=== PATIENT | female | born 1990 | race African-American/Black ===

== ENCOUNTER 2017-03-08 11:43 | Inpatient (IN) ==
--- NOTE | 2017-03-08 10:42 | OB/GYN History & Physical ---
Date of Encounter: 03/08/17 Time of Encounter: 10:35 Assessment and Plan (1) 36 weeks gestation of Current visit: Yes Status: Acute (2) History of cervical cerclage, currently in third trimester Current visit: Yes Status: Acute (3) Uterine contractions during Current visit: Yes Status: Acute Monitor patient for next 4 hours for cervical change due to current contraction pattern Admit to labor and delivery if in labor History of Present Illness Chief complaint: post cerclage removal. Here for labor evaluation and obs. HPI: Ms. Peoples is a 26 year old female 36+6 weeks gestation sent over to triage from the office today after cerclage removal for evaluation of labor. Patient reports has been feeling slight contractions since earlier this morning patient states contractions 4 out of 10. Patient did have complications of placental lakes and ovarian cysts noted on ultrasound, no further complications of this . Patient reports good movement denies leaking of fluid or vaginal bleeding prior to cerclage removal Labs: O-, GBS negative, rubella immune and other serologies negative Past Med Surg Social Fam HX - Social History Smoking Status: Unknown if ever smoked - Family History Mother History Unknown: Yes Living Status: Still Living Obstetrical History - Pregnancies : 3 Para: 1 Term: 1 Livin Medications and Allergies Ferrous Sulfate 325 mg PO DAILY 03/08/17 [History] Complete Caplet 1 tab PO DAILY 03/08/17 [History] Progesterone 200 mg VG DAILY 03/08/17 [History] Allergies No Known Allergies Allergy (Verified 03/08/17 10:04) Review of System OB All systems PM: reviewed and no additional remarkable complaints except as stated Exam - Constitutional Constitutional: well developed, well nourished, no acute distress - Neck Neck exam: full ROM - Lungs Respiratory exam: CTAB - Cardiovascular Cardiovascular exam: RRR, +S1, +S2 - Abdomen Abdomen: Present: bowel sounds normal, gravid, non tender - Uterus Uterus exam: Present: normal size, normal contour Results All other labs normal.
--- NOTE | 2017-03-08 11:22 | OB Labor Progress Note ---
Date of Encounter: 03/08/17 Time of Encounter: 11:20 Labor Progress Note - Subjective Subjective: Pt states contractions are stronger and closer than when she was admitted. Still coping well. - Cervix Cervix: 4/80/-1 - Heart Tones Heart Tones: 135/moderate/+accels/-decels Cat I - Ernest Ernest: q2-4 minutes - Interventions Interventions: Vaginal exam - Plan Plan: Continue current observation Will recheck in [address] Burgos updated.
[~2017-03-08 11:43] MED LIST: *HR* Nalbuphine 20 MG/ML AMPUL IVP PRN; Famotidine 20 MG/2 ML VIAL IVP PRN; Naloxone 0.4 MG/ML INJ IVP PRN
[2017-03-08] MEDS ORDERED: Ringers Solution, Lactated 1,000 ML IVC SCH (11:45)
[2017-03-08 14:35] LABS: Basophils % 0.4 %; Eosinophils # 0.2 K/mcL (0.0-0.6); Eosinophils % 1.7 %; Hematocrit 34.1 % (35.3-44.9); Hemoglobin 10.4 g/dL (11.5-15.4); Immature Granulocytes % 1.8 % (0-4); Lymphocytes # 2.2 K/mcL (0.6-4.6); Mean Corpuscular HGB Conc 30.5 g/dL (31.6-35.5); Mean Corpuscular Hemoglobin 27.8 pg (28.0-33.3); Mean Corpuscular Volume 91.2 fL (83.0-100.0); Mean Platelet Volume 10.9 fL (9.4-12.4); Monocytes # 0.8 K/mcL (0.0-1.3); Monocytes % 7.2 %; Neutrophils # 7.7 K/mcL (1.6-8.9); Platelet Count 213 K/mcL (140-400); Red Blood Count 3.74 M/mcL (3.82-4.97); Red Cell Distribution Width 17.2 % (11.5-14.5); Segmented Neutrophils % 68.9 %
--- NOTE | 2017-03-08 19:51 | OB Labor Progress Note ---
Date of Encounter: 03/08/17 Time of Encounter: 19:49 Labor Progress Note - Subjective Subjective: Pt states she feels contractions have decreased and feels them about every 8 minutes and are less intense. - Cervix Cervix: 5/80/-2 - Heart Tones Heart Tones: 135/moderate/+accels/-decels - [place]: 6-8 minutes/mild palpation - Plan Plan: Due to cervical change and distance from hospital will keep overnight and recheck cervix in AM. Ambien for sleep no monitoring unless patient feels contractions intensify. Regular diet May shower
--- NOTE | 2017-03-09 07:16 | Discharge Summary ---
Date of Encounter: 03/09/17 Time of Encounter: 07:15 - Discharge Diagnosis (1) 36 weeks gestation of Priority: Primary Status: Acute (2) History of cervical cerclage, currently in third trimester Priority: Primary Status: Acute (3) Uterine contractions during Priority: Primary Status: Acute Comments: Pt slept during night. Pt states occasional contractions, but not painful or feeling like labor. VE 5/80/-2. Will discharge home, Discussed with patient about when to return to triage for evaluation. Dr Baca updated. Dr. Burgos updated by Dr. Baca - Discharge Medications Home Medications: Ferrous Sulfate 325 mg PO DAILY 03/08/17 [History] Complete Caplet 1 tab PO DAILY 03/08/17 [History] Progesterone 200 mg VG DAILY 03/08/17 [History] Allergies/Adverse Reactions: Allergies No Known Allergies Allergy (Verified 03/08/17 10:04) Data Procedures and tests throughout hospitalization: Laboratory Tests 03/08/17 14:00 WBC 11.2 H RBC 3.74 L Hgb 10.4 L Hct 34.1 L MCV 91.2 MCH 27.8 L MCHC 30.5 L RDW 17.2 H Plt Count 213 MPV 10.9 Immature Gran % 1.8 Seg Neutrophils % 68.9 Lymphocytes % 20.0 Monocytes % 7.2 Eosinophils % 1.7 Basophils % 0.4 Neutrophils # 7.7 Lymphocytes # 2.2 Monocytes # 0.8 Eosinophils # 0.2 Basophils # 0.0 Labs on day of discharge: Labs from last 24 hours 03/08/17 14:00 WBC 11.2 H RBC 3.74 L Hgb 10.4 L Hct 34.1 L MCV 91.2 MCH 27.8 L MCHC 30.5 L RDW 17.2 H Plt Count 213 MPV 10.9 Immature Gran % 1.8 Seg Neutrophils % 68.9 Lymphocytes % 20.0 Monocytes % 7.2 Eosinophils % 1.7 Basophils % 0.4 Neutrophils # 7.7 Lymphocytes # 2.2 Monocytes # 0.8 Eosinophils # 0.2 Basophils # 0.0 Date of admission: 03/08/17 11:43 Primary care physician: PCP NO Discharging clinician: Dolores Ramirez Anticipated date of discharge: 03/09/17 - Patient Status Disposition: Home, Self-Care Condition: Good Functional capacity at discharge: independent ambulation Overall status at discharge: patient is back to baseline - Discharge Instructions Follow Up With: NO,PCP [Primary Care Provider] - Olga Lidia Burgos MD [Partnered Physician] - Additional Instructions: LABOR AND DELIVERY DISCHARGE INSTRUCTIONS Signs and Symptoms to be Reported to your Doctor Immediately: * Sudden gush, continuous or intermittent lead of fluid from vagina (note the time of gush and color of fluid) * Onset of bright red vaginal bleeding with or without pain (if you had a vaginal exam during this visit you may notice some dark red spotting. This is normal.) * Lower abdominal cramping or backache that is premenstrual-like feeling. * More than 6 contractions in one hour. * Burning during urination, having to urinate more frequently or pain in your mid-back. * A change in the baby's activity. This could be an increase or decrease in activity. * Severe headache which does not go away with tylenol. * Sudden swelling in the face, hands, arms and/or legs. * Upper abdominal pain - sometimes associated with heartburn or nausea and is not relieved by Maalox, Mylanta or Tums. * Dizziness or blurred vision or visual disturbances (seeing stars/lights). * Kick Counts One hour after a meal, lay down on one side in a quiet place. Count the number of lauren the baby moves during an hour. If less than 6 movements, notify your physician. Diet: *Force fluids - 8-10 tall glasses of fluid per day. May include popsicles and jello. *Limit caffeine - this includes chocolate, coffee, tea, any soft drink containing such as all charles, Boni Yellow and Mountain Dew - Diet and Activity Activity: resume usual activities as tolerated Diet: regular diet Hospital Course BRAN MIXER Time Attestation: Total time spent providing and/or coordinating discharge services: Exam - Constitutional General appearance IM: A&O X 3 - Respiratory Respiratory exam: Present: CTAB - Cardiovascular Cardiovascular exam IM: Present: RRR - Extremities Exam Extremities exam IM: Present: normal capillary refill, normal inspection - Neurological Exam Neurological exam: normal gait, oriented X3 - VTE Reasons for not Prescribing Prophylaxis: Medical contraindication
== END 2017-03-09 07:22 | disposition home or self-care (01) | DRG 782 ==
LOC: 1NENULAB
PROVIDERS: ADMIT Obstetrics & Gynecology; ATTEND Obstetrics & Gynecology

== ENCOUNTER 2017-03-24 08:00 | Inpatient (IN) ==
--- NOTE | 2017-03-24 08:42 | History & Physical Report ---
Date of Encounter: 03/24/17 Time of Encounter: 08:41 24 Hour HP Update - Instructions Instructions: If the History and Physical is less than 30 days old and was completed prior to A.M. admission and or procedure and has NOT been updated on calendar day of procedure please complete this update prior to performing procedure. - Update Patient reports changes in Medical Condition: No Changes in examination, assessment, or condition: No Changes in Medication: No Preop tests/diagnostics Reviewed: Yes Surgery Remains Indicated: Yes Consent for Planned Operative Procedure(s) Verified: Yes - Pre-Operative Checklist Preoperative Checklist Indicated: No Prophylactic Antibiotic Ordered: No Home Medications Include Beta Raffaele: No Beta Raffaele Taken Today (Day of Surgery): No Beta Raffaele Taken Yesterday (Day Prior to Surgery): No Is VTE Prophylaxis Indicated?: NO
[2017-03-24] MEDS ORDERED: Metoclopramide 10 MG/2 ML VIAL IVP PRN (08:55)
[2017-03-24] MEDS ORDERED: Famotidine 20 MG/2 ML VIAL IVP PRN (08:55)
[2017-03-24] MEDS ORDERED: Naloxone 0.4 MG/ML INJ IVP PRN (08:55)
[2017-03-24] MEDS ORDERED: *HR* Nalbuphine 20 MG/ML AMPUL IVP PRN (08:59)
[2017-03-24] MEDS ORDERED: Oxytocin 20 units/ LR 1000 mL 20 UNIT/1,000 ML BAG IVC SCH ×2 (09:00→15:31)
[2017-03-24] MEDS ORDERED: Ringers Solution, Lactated 1,000 ML IVC SCH (09:00)
[2017-03-24 09:43] LABS: Basophils % 0.4 %; Eosinophils # 0.2 K/mcL (0.0-0.6); Eosinophils % 2.1 %; Hematocrit 31.7 % (35.3-44.9); Hemoglobin 9.8 g/dL (11.5-15.4); Immature Granulocytes % 1.3 % (0-4); Immature Platelets 5.1 % (1.1-6.1); Lymphocytes # 2.4 K/mcL (0.6-4.6); Lymphocytes % 23.7 %; Mean Corpuscular HGB Conc 30.9 g/dL (31.6-35.5); Mean Corpuscular Hemoglobin 28.1 pg (28.0-33.3); Mean Corpuscular Volume 90.8 fL (83.0-100.0); Mean Platelet Volume 10.7 fL (9.4-12.4); Monocytes % 9.9 %; Neutrophils # 6.2 K/mcL (1.6-8.9); Platelet Count 217 K/mcL (140-400); Red Blood Count 3.49 M/mcL (3.82-4.97); Red Cell Distribution Width 17.2 % (11.5-14.5); Segmented Neutrophils % 62.6 %
--- NOTE | 2017-03-24 09:51 | OB Labor Progress Note ---
Date of Encounter: 03/24/17 Time of Encounter: 09:49 Labor Progress Note - Subjective Subjective: The pt is comfortable, appreciates mild contractions - Vital Signs Vital Signs: Afeb, VSS - Cervix Cervix: 6/90/-1, vtx, BBOW - Heart Tones Heart Tones: 150s, CAT1 - Sawpit Sawpit: spont q 4-6' - Interventions Interventions: 39 wk IUP w/ h/o cervical incompitence, s/p cervical cerclage removal at 37 weeks for induction of labor, but in early spont labor - Plan Plan: Augment with amniotomy - small amt clear fluid seen, anticipate
[2017-03-24] MEDS ORDERED: *HR* Ropivacaine/PF 0.2% 10 ML AMPUL EP ONE (10:29)
[2017-03-24] MEDS ORDERED: *HR* FentaNYL (PF) 100 MCG/2 ML VIAL EP ONE (10:29)
[2017-03-24] MEDS ORDERED: Epidural Premix (fent/bupiv) 110 ML EP SCH (10:30)
[2017-03-24] MEDS ORDERED: *HR* Ropivacaine/PF 0.2% 10 ML AMPUL ONE (10:31)
[2017-03-24] MEDS ORDERED: *HR* FentaNYL (PF) 100 MCG/2 ML VIAL ONE (10:31)
[2017-03-24] MEDS ORDERED: Epidural Premix (fent/bupiv) 110 ML EP ONE (10:31)
--- NOTE | 2017-03-24 10:56 | Anesthesia Evaluation PreOp ---
Date of Encounter: 03/24/17 Time of Encounter: 10:54 - Past History Planned Operation: [place] Cardiac History: Denies any Significant Hx Pulmonary History: Denies Any Significant HX FAMILY REUNIFICATION SPECIALIST History: Denies Any Significant HX Other Medical History: GERD Anesthesia History: No Prior Anesthetic Complications, Past Anesthesia (charlotte x 2) , Problems (none) : Yes Test: Positive Alcohol Use: none Drug use: none Medications and Allergies Ferrous Sulfate 325 mg PO DAILY 03/08/17 [History] Complete Caplet 1 tab PO DAILY 03/08/17 [History] Progesterone 200 mg VG DAILY 03/08/17 [History] Allergies No Known Allergies Allergy (Verified 03/08/17 10:04) - Meds/Allergy Pre-op Review Medications Reviewed: Yes Allergies Reviewed: Yes Beta Blockers on Current Med List: No Anesthesia Results - Labs 03/24/17 09:20 Anesthesia Exam 122/78 88, 16 fht 147 Height: 5'2" Weight: 80 NPO (# of Hours): 3 Pain Scale: 7 Pain Scale Used: Numeric (1 - 10) - HEENT Pupil (Motor): Pupils equal Mallampati: II Teeth: Normal Oral Opening: Greater than 3 - FAMILY REUNIFICATION SPECIALIST LOC: Oriented FAMILY REUNIFICATION SPECIALIST Motor: Normal RUE, Normal LUE, Normal RLE, Normal LLE, Normal Face FAMILY REUNIFICATION SPECIALIST Sensory: Normal: RUE, LUE, RLE, LLE, Face - Cardiac Rhythm: Regular Murmur: None - Pulmonary Breath Sounds: bilateral Clear Respiratory Effort: Symmetrical Anesthesia Assess/Plan ASA Score: 2 Modified [place] Scale for Level of Consciousness: Cooperative, oriented, and tranquil Anesthetic Plan: Regional Autologous Blood: No Monitoring Plan: Standard Monitors Recovery Plan: Other (risks discussed, questions answered, consented)
--- NOTE | 2017-03-24 10:59 | Anesthesia Procedures ---
Date of Encounter: 03/24/17 Time of Encounter: 10:57 Procedures: Anesthesia - Epidural/Spinal Patient ID/Chart reviewed: Yes Patient examined: Yes OB Eval: Gestational age: 39.1 OB Eval: : 3 OB Eval: Hx Para: 1 OB Eval: Dilated at (cm): 6 OB Eval: Contractions: Non-stressed pattern Consent Obtained: Yes Supplemental Oxygen: None/Room Air Site Prep: Aseptic Technique, 0.5% Chlorhexidine/Alcohol Patient position: upright Local Anesthetic: Lidocaine 1% Amount of Local Anesthetic used: 3 Touhy Needle Gauge: 18 Touhy Needle Depth (cm): 7 Catheter Depth at Skin (cm): 15 Test Dose (1.5% Lido + Epi): Volume given (mls): 3 Test Dose Result: Negative Loading Dose: Fentanyl (mcg): 100 Loading Dose: Other: rop 0.2% 10cc Loading Dose Administered: Thru Touhy Needle Infusion Med: 0.125% Bupivacaine w/ 2 mcg/ml Fentanyl Infusion Rate (mls/hr): [address]: Tegaderm Interspace Used: L2-L3 Loss of Resistance (BRAD): Yes Blood: No CSF: No Paresthesia: No Procedure: aseptic throughout, VSS, FHT stable, tolerated well, effective Vitals + FHT's: see nsg note
--- NOTE | 2017-03-24 11:53 | OB Labor Progress Note ---
Date of Encounter: 03/24/17 Time of Encounter: 11:51 Labor Progress Note - Subjective Subjective: Pt comfortable with epidural. - Vital Signs Vital Signs: afeb,VSS - Cervix Cervix: 8/90/0 vtx - Heart Tones Heart Tones: 120s base, CAT1 - Drain Drain: spontaneous q 1-2' - Interventions Interventions: 39 wk IUP with augmentation of labor, s/p cerclage, h/o cervical incompetence, anemia - Plan Plan: cont laboring and observe for
[2017-03-24] MEDS ORDERED: Lidocaine 1% 20 ML MDV ONE (13:35)
--- NOTE | 2017-03-24 14:22 | OB/GYN Procedure Note ---
Delivery - Delivery Date: 03/24/17 Provider: Olga Lidia Burgos Intrapartum events: none Delivery augmentation: rupture of membranes Delivery monitor: external FHT, external uterine Anesthesia: epidural Estimated Blood Loss: 100 - Infant (s) A Delivery Date: 03/24/17 Delivery Time: 13:53 Presentation: vertex Position: KATHY Route of delivery: Gender: Female Viability: Viable Pounds: 8 Ounces: 2 Weight Gram: 3.695 kg at 1 minute: 8 at 5 mins: 9 Shoulder Dystocia: not encountered Specimens collected: cord blood Placenta: spontaneous, uterine exploration (No retained POC) Cord: 3 umbilical vessels - Repair Episiotomy: none Laceration Description: None - Complications Delivery complications: none Delivery comments: The patient was complete and pushing with epidural anesthesia with a spontaneous vaginal delivery in the KATHY position of a vigorous female infant with Apgars of 8 at 1 minute and 9 at 5 minutes. Infant was placed on the maternal abdomen. The cord was clamped and cut after pulsations ceased. Cord blood obtained. The placenta was delivered spontaneous and intact. Visual inspection of the perineum, vagina and labia revealed no lacerations. The uterus is explored and there were no products of conception palpated. Estimated blood loss 100 mL, complications none - Disposition Mom disposition: stable in LDR [place] disposition: stable in LDR
[2017-03-24] MEDS ORDERED: Rho Immune Globulin 1,500 UNIT SYRINGE IM PRN (15:31)
[2017-03-24] MEDS ORDERED: Acetaminophen 325 MG TABLET PO PRN (15:31)
[2017-03-24] MEDS: Ibuprofen 600 MG TABLET PO PRN (20:49)
[2017-03-25] MEDS: Ibuprofen 600 MG TABLET PO PRN (03:37)
[2017-03-25 05:17] LABS: Basophils % 0.3 %; Eosinophils # 0.4 K/mcL (0.0-0.6); Eosinophils % 2.5 %; Hematocrit 30.5 % (35.3-44.9); Hemoglobin 9.5 g/dL (11.5-15.4); Immature Granulocytes % 0.9 % (0-4); Lymphocytes # 3.4 K/mcL (0.6-4.6); Lymphocytes % 22.5 %; Mean Corpuscular HGB Conc 31.1 g/dL (31.6-35.5); Mean Corpuscular Hemoglobin 28.2 pg (28.0-33.3); Mean Corpuscular Volume 90.5 fL (83.0-100.0); Monocytes # 1.6 K/mcL (0.0-1.3); Monocytes % 10.4 %; Neutrophils # 9.6 K/mcL (1.6-8.9); Platelet Count 186 K/mcL (140-400); Red Blood Count 3.37 M/mcL (3.82-4.97); Red Cell Distribution Width 17.1 % (11.5-14.5); Segmented Neutrophils % 63.4 %
[2017-03-25 05:25] LABS: Basophils # 0.1 K/mcL (0.0-0.2)
--- NOTE | 2017-03-25 07:54 | Discharge Summary ---
Date of Encounter: 03/25/17 Time of Encounter: 07:55 - Discharge Diagnosis (1) Status post vaginal delivery Priority: Primary Status: Acute Comments: We will discharge home patient will follow up in 4 weeks (2) Anemia Priority: Secondary Status: Acute Qualifiers: Anemia type: iron deficiency Iron deficiency anemia type: other iron deficiency Qualified Code(s): D50.8 - Other iron deficiency anemias (3) Blood loss anemia Priority: Secondary Status: Acute Comments: Patient has iron sulfate at home will continue to take this - Discharge Medications Prescriptions: Ibuprofen [Motrin] 600 mg PO Q6HR PRN #30 tablet PRN Reason: Mild To Moderate Pain Home Medications: Ferrous Sulfate 325 mg PO DAILY 03/08/17 [History] Complete Caplet 1 tab PO DAILY 03/08/17 [History] Progesterone 200 mg VG DAILY 03/08/17 [History] Ibuprofen [Motrin] 600 mg PO Q6HR PRN #30 tablet 03/25/17 [Rx] Allergies/Adverse Reactions: Allergies No Known Allergies Allergy (Verified 03/08/17 10:04) Data Procedures and tests throughout hospitalization: Laboratory Tests 03/24/17 03/25/17 09:20 04:53 WBC 10.0 15.2 H D RBC 3.49 L 3.37 L Hgb 9.8 L 9.5 L Hct 31.7 L 30.5 L MCV 90.8 90.5 MCH 28.1 28.2 MCHC 30.9 L 31.1 L RDW 17.2 H 17.1 H Plt Count 217 186 MPV 10.7 11.0 Immature Gran % 1.3 0.9 Seg Neutrophils % 62.6 63.4 Lymphocytes % 23.7 22.5 Monocytes % 9.9 10.4 Eosinophils % 2.1 2.5 Basophils % 0.4 0.3 Neutrophils # 6.2 9.6 H Lymphocytes # 2.4 3.4 Monocytes # 1.0 1.6 H Eosinophils # 0.2 0.4 Basophils # 0.0 0.1 Immature Plt Fraction 5.1 Labs on day of discharge: Labs from last 24 hours 03/25/17 03/24/17 04:53 09:20 WBC 15.2 H D 10.0 RBC 3.37 L 3.49 L Hgb 9.5 L 9.8 L Hct 30.5 L 31.7 L MCV 90.5 90.8 MCH 28.2 28.1 MCHC 31.1 L 30.9 L RDW 17.1 H 17.2 H Plt Count 186 217 MPV 11.0 10.7 Immature Gran % 0.9 1.3 Seg Neutrophils % 63.4 62.6 Lymphocytes % 22.5 23.7 Monocytes % 10.4 9.9 Eosinophils % 2.5 2.1 Basophils % 0.3 0.4 Neutrophils # 9.6 H 6.2 Lymphocytes # 3.4 2.4 Monocytes # 1.6 H 1.0 Eosinophils # 0.4 0.2 Basophils # 0.1 0.0 Immature Plt Fraction 5.1 Date of admission: 03/24/17 08:07 Primary care physician: Juana Joyner, Consults: 03/24/17 15:31 Consult to Lawn Mower Sharpener [CONS] Routine Comment: Vaginal delivery, consult needed Discharging clinician: Lalito Woods Anticipated date of discharge: 03/25/17 - Patient Status Disposition: Home, Self-Care Condition: Good Functional capacity at discharge: independent ambulation Overall status at discharge: patient is progressing back to baseline - Discharge Instructions Follow Up With: Juana Joyner MD [Primary Care Provider] - Olga Lidia Burgos MD [Partnered Physician] - - Diet and Activity Activity: increase activity as tolerated Diet: advance to your usual diet Hospital Course Procedures: Vaginal delivery Reason for admission: induction of labor Delivery: Episiotomy: none Laceration: none Other procedures: none complications: none Discharge diagnosis: IUP at term delivered Hospital course: Patient is a 26-year-old female who is brought in for induction of labor secondary to term . She underwent a normal spontaneous vaginal delivery without complications. Patient's hospital course was unremarkable she was discharged home on hospital day #1 with prescription for Motrin 600 mg and will continue iron sulfate at home. Patient will be scheduled for visit in 4 weeks Time Attestation: Total time spent providing and/or coordinating discharge services: Exam - Constitutional Vitals: Temp Pulse Resp BP Pulse Ox 98.3 F 71 20 131/83 96 03/25/17 03:30 03/25/17 03:30 03/25/17 03:30 03/25/17 03:30 03/25/17 03:30 General appearance IM: A&O X 3 - Respiratory Respiratory exam: Present: CTAB - Cardiovascular Cardiovascular exam IM: Present: RRR - GI/Abdominal GI/Abdominal exam IM: normal bowel sounds - Uterus Position: At Umbilicus - Extremities Exam Extremities exam IM: Present: full ROM
[2017-03-25] MEDS ORDERED: Prenatal Vit/FA 1 EACH TABLET PO SCH (09:00)
[2017-03-25 09:40] VITALS: BP 109/67
== END 2017-03-25 17:00 | disposition home or self-care (01) | DRG 775 ==
LOC: 1NENULAB 08:07 → 1NENUOBS 16:41
PROVIDERS: ADMIT Obstetrics & Gynecology; ATTEND Obstetrics & Gynecology